=== PATIENT | female | born 1960 | race African-American/Black ===

== ENCOUNTER 2017-02-09 07:37 | Observation (INO) | payer OTHER ==
[2017-02-02 14:38] LABS: HEMATOCRIT 42.2 % (36.0-48.0); HEMOGLOBIN 14.1 g/dL (12.0-16.0)
[2017-02-02 14:51] LABS: CHLORIDE, SERUM 103 MMOL/L (96-112); CO2 (CARBON DIOXIDE) 30 MMOL/L (24-34); CREATININE 0.73 MG/DL (0.55-1.02); GFR AFRICAN AMERICAN 105 ML/MIN (>=60); GFR NON AFRICAN AMERICAN 91 ML/MIN (>=60); GLUCOSE, SERUM 108 MG/DL (60-99); POTASSIUM, SERUM 3.7 MMOL/L (3.5-5.3); SODIUM, SERUM 142 MMOL/L (135-148)
[2017-02-02 14:52] LABS: BUN (BLOOD UREA NITROGEN) 16 MG/DL (6-23); CALCIUM, SERUM 9.5 MG/DL (8.5-10.4)
--- NOTE | ~2017-02-09 | OP ---
Record Of Operation [facility] [address] [place]. [address] NAME: GUANAKO HERNANDES : 56 STATUS : ADM Woodrow PAT#: [id number] AGE: 56 ADM/REG DATE : 02/09/17 MR#: [id number] REPORT SERV DATE: 02/11/17 DICTATED BY: JAMES GAMEZ II DATE: 02/11/17 REPORT STATUS : Draft TRANSCRIBED BY: BRYAN DATE: 02/11/17 DATE OF PROCEDURE: 02/09/2017 PREOPERATIVE DIAGNOSES: 1. Discogenic neck pain with left greater than right upper extremity radiculopathy. 2. Multilevel cervical stenosis. POSTOPERATIVE DIAGNOSES: 1. Discogenic neck pain with left greater than right upper extremity radiculopathy. 2. Multilevel cervical stenosis. PROCEDURE: 1. C4-5, C5-6, and C6-7 anterior interbody arthrodesis. 2. Application of prosthetic devices, C4-5, C5-6, and C6-7. 3. Anterior instrumentation, C4 to C7 (four segments). 4. Use of the microscope. 5. Use of bone marrow aspirate and allograft substitute. FLUIDS: 1800 mL LR. ESTIMATED BLOOD LOSS: 35 mL. DRAINS: One drain. COMPLICATIONS: None. IMPLANTS: Alphatec. PREOPERATIVE HISTORY: This is a very friendly 56-year-old female, who reports significant neck pain worse with rotation and extension, with significant radiation into the left periscapular region. The pain radiates into the arm and dorsal aspect of the forearm. The patient also reports severe numbness and tingling. We discussed the pros and cons of continuing nonoperative care versus surgery. We discussed the risk of dysphagia as well as vocal cord paralysis. We also discussed the rates of success of the surgery to decrease neck pain and arm symptoms respectively. DESCRIPTION OF PROCEDURE: After informed consent was obtained, the patient was brought to the operating room at her request, and general anesthesia was achieved. She was placed in the supine position and the neck and iliac crest were prepped and draped in a sterile fashion. A 5 mL of bone marrow were aspirated from the iliac crest followed by a right- sided longitudinal incision. The interval was explored and the deep cervical fascia was incised. The proper level was radiographically confirmed followed by subperiosteal exposure. The woodworking belt sander retractors were placed underneath the longus colli muscles. The ET tube cuff was deflated and reinflated followed by use of the microscope. Under microscopic visualization, the C4-5 disk was now removed and the endplates prepared with the pituitary rongeurs, Kerrison rongeurs, and the curettes, and the high-speed bur. Parallel Record Of Operation [facility] [address] [place]. [address] NAME: GUANAKO HERNANDES : 56 STATUS : ADM Woodrow PAT#: [id number] AGE: 56 ADM/REG DATE : 02/09/17 MR#: [id number] REPORT SERV DATE: 02/11/17 DICTATED BY: JAMES GAMEZ II DATE: 02/11/17 REPORT STATUS : Draft TRANSCRIBED BY: BRYAN DATE: 02/11/17 endplates were created and the posterior vertebral body osteophytes were removed. The anterior canal was now well decompressed by removing the posterior ligament and the osteophytes. The prosthetic device was then trialed and chosen, and placed at C4-5. This contained allograft substitute and bone marrow aspirate. Next, the C5-6 level was addressed in a similar manner. The disk was removed followed by endplate preparation. The pituitary rongeurs, and Kerrison rongeurs were used once again, with the curettes and the high-speed bur. The endplates were prepared and the significant foraminal and posterior osteophytes were removed. The canal was well decompressed with the Kerrison rongeurs. The prosthetic device was well placed followed by working down to C6-7. The C6-7 level was addressed and the diskectomy was performed. The significant foraminal osteophytes were removed and the spinal cord decompressed as well with the removal of the ligament and the posterior osteophytes, the prosthetic device was then placed at C6-7. This was well placed and the [place] pins were now removed. Next, the C4 to C7 anterior cervical plate was chosen and placed. Please note, this was a separate plate and screw construct. Two screws were then placed in the C4, C5, C6, and C7. Multiplanar imaging confirmed acceptable placement of the implants. The deep drain was placed followed by standard closure, and the patient was then extubated, and transferred to PACU in stable condition. KELIN/MODL James Gamez II, M.D. / [id number] CC: Erendira Rocha II, D.O. F.A.C.P.
[~2017-02-09 07:37] MED LIST: ALEVE220 MG PO; LOPRESS HC100 MG/25 PO; METHOC750B PO; NEUR100 PO; NEUR300 PO; NORV5 PO; T PO; T3 PO; ULTRAM50 PO; VOLTXR100 PO; [UNRECOGNIZED DRUG - CODE] PO; [UNRECOGNIZED DRUG - REMARK]
[2017-02-11] MEDS ORDERED: V5 PO (11:01)
[2017-02-11] MEDS ORDERED: PCET PO (11:02)
[2017-02-11] MEDS ORDERED: MEDROLPAK4 PO (11:02)
[2017-02-11] MEDS ORDERED: DSS PO (11:03)
== END 2017-02-11 14:37 | disposition home or self-care (01) ==
LOC: SDC 07:37 → 1SO 15:31
PROVIDERS: Orthopaedic Surgery
PROC: 0RG2070 Fusion of 2 or more Cervical Vertebral Joints with Autologous Tissue Substitute, Anterior Approach, Anterior Column, Open Approach (ICD-10-PCS; 2017-02-09)
PROC: 0RG10K0 Fusion of Cervical Vertebral Joint with Nonautologous Tissue Substitute, Anterior Approach, Anterior Column, Open Approach (ICD-10-PCS; 2017-02-09)
PROC: 079T3ZX Drainage of Bone Marrow, Percutaneous Approach, Diagnostic (ICD-10-PCS; principal; 2017-02-09 10:15)
PROC: 0RG20A0 Fusion of 2 or more Cervical Vertebral Joints with Interbody Fusion Device, Anterior Approach, Anterior Column, Open Approach (ICD-10-PCS; 2017-02-09 10:15)
DX: M50.121 Cervical disc disorder at C4-C5 level with radiculopathy (principal); M50.122 Cervical disc disorder at C5-C6 level with radiculopathy; M50.123 Cervical disc disorder at C6-C7 level with radiculopathy; M48.02 Spinal stenosis, cervical region; I10 Essential (primary) hypertension; F17.210 Nicotine dependence, cigarettes, uncomplicated; M19.90 Unspecified osteoarthritis, unspecified site; Z86.010 Personal history of colon polyps; Z79.1 Long term (current) use of non-steroidal anti-inflammatories (NSAID); Z79.899 Other long term (current) drug therapy; Z98.890 Other specified postprocedural states
CPT/HCPCS: 80048; 82962; 85014; 85018; 87641; 88304; 88311; 93005; 96374; 96375; 96376; A9270-GY; C1713; G0378; J0690; J1170; J2250; J2270; J2405; J2550; J2710; J3010